=== PATIENT | male | born 1955 ===

== ENCOUNTER 2018-11-17 11:43 | Inpatient (IN) | payer OTHER ==
[2018-11-17 12:12] LABS: ADD MAN DIFF? NO
[2018-11-17] MEDS: ASPIRIN 325 MG TAB PO (12:17)
[2018-11-17 12:23] LABS: WHITE BLOOD COUNT 9.4 10^3/ul (4.8-10.8)
[2018-11-17 12:23] LABS: BASOPHIL # 0.1 10^3/ul (0.0-0.1); BASOPHILS % 0.5 % (0.0-2.0); EOSINOPHILS # 0.3 10^3/ul (0.0-0.5); EOSINOPHILS % 3.6 % (0.0-7.0); HEMATOCRIT 42.9 % (42.0-52.0); HEMOGLOBIN 14.3 g/dl (14.0-18.0); LYMPHOCYTES # 2.9 10^3/ul (0.8-2.9); LYMPHOCYTES % 30.9 % (15.0-51.0); MEAN CORPUSCULAR HEMOGLOBIN 29.5 pg (29.0-33.0); MEAN CORPUSCULAR HGB CONC 33.3 g/dl (32.0-37.0); MEAN CORPUSCULAR VOLUME 88.5 fl (82.0-101.0); MEAN PLATELET VOLUME 9.8 fl (7.4-10.4); MONOCYTE # 0.5 10^3/ul (0.3-0.9); MONOCYTES % 5.5 % (0.0-11.0); NEUTROPHIL # 5.5 10^3/ul (1.6-7.5); NEUTROPHILS % 59.1 % (39.0-77.0); PLATELET COUNT 303 10^3/UL (140-415); RED BLOOD COUNT 4.85 10^6/ul (4.70-6.10); RED CELL DISTRIBUTION WIDTH 12.7 % (11.5-14.5)
[2018-11-17] MEDS: LIDOCAINE 1% (MPF) 5 ML VIAL (12:37)
[2018-11-17 12:39] LABS: INR 0.93; PROTIME 12.6 Sec (11.9-14.9)
[2018-11-17 12:47] LABS: ALANINE AMINOTRANSFERASE 26 IU/L (13-69); ALBUMIN 4.4 g/dl (3.3-4.9); ALBUMIN/GLOBULIN RATIO 1.15; ALKALINE PHOSPHATASE 99 IU/L (42-121); ANION GAP 11 (5-13); ASPARTATE AMINO TRANSFERASE 35 IU/L (15-46); BILIRUBIN,INDIRECT 0.6 mg/dl (0-1.1); BILIRUBIN,TOTAL 0.6 mg/dl (0.2-1.3); BLOOD UREA NITROGEN 14 mg/dl (7-20); CALCIUM 9.5 mg/dl (8.4-10.2); CARBON DIOXIDE 27 mmol/L (21-31); CHLORIDE 104 mmol/L (97-110); CREATINE KINASE 73 IU/L (23-200); CREATININE 0.54 mg/dl (0.61-1.24); Estimated GFR > 60 mL/min (>60); GLUCOSE 124 mg/dl (70-220); POTASSIUM 3.9 mmol/L (3.5-5.1); SODIUM 142 mmol/L (135-144); TOTAL PROTEIN 8.2 g/dl (6.1-8.1)
[2018-11-17 12:58] LABS: B-TYPE NATRIURETIC PEPTIDE 46 PG/ML (0-125); CK INDEX 0.4; CK-MB 0.27 ng/ml (0.0-2.4); TROPONIN-I < 0.012 ng/ml (0.000-0.120)
[2018-11-17] MEDS ORDERED: NITROGLYCERIN (SL) 0.4 MG TAB SL ×2 (14:00→15:00)
[2018-11-17] MEDS: ONDANSETRON 4 MG INJ IV (14:14)
[2018-11-17] MEDS: morphine 2 MG INJ IV ×3 (14:14→18:44)
[2018-11-17] MEDS ORDERED: ONDANSETRON 4 MG INJ IV ×2 (14:30→15:00)
[2018-11-17] MEDS ORDERED: ACETAMINOPHEN 325 MG TAB PO ×2 (14:30→15:00)
[2018-11-17] MEDS ORDERED: GLUCAGON 1 MG INJ IM (15:00)
[2018-11-17] MEDS ORDERED: DEXTROSE 50% 50 ML SYRINGE IV ×2 (15:00)
[2018-11-17] MEDS ORDERED: GLUCOSE GEL 15 GRAM TUBE PO ×2 (15:00)
[2018-11-17] MEDS ORDERED: LORAZEPAM 2 MG INJ IV (15:00)
[2018-11-17] MEDS ORDERED: MAGNESIUM HYDROXIDE 30ML CUP PO (15:00)
[2018-11-17] MEDS ORDERED: GLUCOSE GEL 15 GRAM TUBE BUCCAL (15:00)
[2018-11-17] MEDS ORDERED: NACL 0.9% 3 ML SYG IV (15:00)
[2018-11-17] MEDS ORDERED: hydrALAzine 20 MG INJ IV (15:00)
[2018-11-17] MEDS ORDERED: ALBUTEROL/IPRATROPIUM (NEB) 3 ML AMP HHN (15:00)
[2018-11-17] MEDS ORDERED: DOCUSATE SODIUM 100 MG CAP PO (15:00)
[2018-11-17 16:40] LABS: FREE T4 (FREE THYROXINE) 1.04 ng/dl (0.78-2.44)
[2018-11-17] MEDS: INSULIN ASPART [NOVOLOG] 3 ML PEN SC ×2 (17:00→20:44)
[2018-11-17] MEDS: SOD CHLORIDE 0.45% 1,000 ML IV (18:44)
[2018-11-17 19:19] LABS: CREATINE KINASE 59 IU/L (23-200)
[2018-11-17 19:29] LABS: CK INDEX 0.4; CK-MB < 0.22 ng/ml (0.0-2.4)
[2018-11-17 19:32] LABS: TROPONIN-I < 0.012 ng/ml (0.000-0.120)
[2018-11-17] MEDS: TAMSULOSIN (SR) 0.4 MG CAP PO (20:39)
[2018-11-17] MEDS: HEPARIN 5,000 UNIT/1 ML VIAL SC (20:53)
[2018-11-17] MEDS: HYDROCODONE/APAP (5/325) TAB PO (20:54)
[2018-11-17] MEDS: traZODone 50 MG TAB PO (23:16)
[2018-11-17 23:58] LABS: CREATINE KINASE 56 IU/L (23-200)
[2018-11-18 00:10] LABS: CK INDEX 0.4; CK-MB 0.22 ng/ml (0.0-2.4); TROPONIN-I < 0.012 ng/ml (0.000-0.120)
[2018-11-18] MEDS: INSULIN ASPART [NOVOLOG] 3 ML PEN SC ×6 (00:24→20:59)
[2018-11-18] MEDS: ACCU-CHEK XX (01:37)
[2018-11-18] MEDS: HYDROCODONE/APAP (5/325) TAB PO ×3 (03:52→22:09)
[2018-11-18] MEDS: SOD CHLORIDE 0.45% 1,000 ML IV ×2 (03:55→07:53)
[2018-11-18 06:22] LABS: ADD MAN DIFF? NO
[2018-11-18 06:29] LABS: WHITE BLOOD COUNT 8.3 10^3/ul (4.8-10.8)
[2018-11-18 06:29] LABS: BASOPHIL # 0.1 10^3/ul (0.0-0.1); BASOPHILS % 0.6 % (0.0-2.0); EOSINOPHILS # 0.5 10^3/ul (0.0-0.5); EOSINOPHILS % 5.6 % (0.0-7.0); HEMATOCRIT 37.6 % (42.0-52.0); HEMOGLOBIN 12.7 g/dl (14.0-18.0); LYMPHOCYTES # 2.6 10^3/ul (0.8-2.9); LYMPHOCYTES % 30.9 % (15.0-51.0); MEAN CORPUSCULAR HEMOGLOBIN 29.6 pg (29.0-33.0); MEAN CORPUSCULAR HGB CONC 33.8 g/dl (32.0-37.0); MEAN CORPUSCULAR VOLUME 87.6 fl (82.0-101.0); MEAN PLATELET VOLUME 9.7 fl (7.4-10.4); MONOCYTE # 0.5 10^3/ul (0.3-0.9); MONOCYTES % 6.4 % (0.0-11.0); NEUTROPHIL # 4.7 10^3/ul (1.6-7.5); NEUTROPHILS % 55.9 % (39.0-77.0); PLATELET COUNT 274 10^3/UL (140-415); RED BLOOD COUNT 4.29 10^6/ul (4.70-6.10); RED CELL DISTRIBUTION WIDTH 12.8 % (11.5-14.5)
[2018-11-18 07:02] LABS: HEMOGLOBIN A1C 6.3 % (0-5.9)
[2018-11-18 07:08] LABS: CHOLESTEROL 162 mg/dl (100-200)
[2018-11-18 07:08] LABS: CHOL/HDL RATIO 4.3 RATIO; HDL CHOLESTEROL 37 mg/dl (30-78); LDL CHOLESTEROL,CALCULATED 94 mg/dl; TRIGLYCERIDES 155 mg/dl (0-149)
[2018-11-18 07:18] LABS: ANION GAP 10 (5-13); BLOOD UREA NITROGEN 12 mg/dl (7-20); CALCIUM 8.5 mg/dl (8.4-10.2); CARBON DIOXIDE 26 mmol/L (21-31); CHLORIDE 103 mmol/L (97-110); Estimated GFR > 60 mL/min (>60); GLUCOSE 101 mg/dl (70-220); MAGNESIUM 1.7 mg/dl (1.7-2.5); PHOSPHORUS 3.7 mg/dl (2.5-4.9); POTASSIUM 3.6 mmol/L (3.5-5.1); SODIUM 139 mmol/L (135-144)
[2018-11-18] MEDS: REGADENOSON 0.4 MG/5 ML SYG (11:45)
[2018-11-18] MEDS: ASPIRIN (EC) 325 MG TAB PO (12:49)
[2018-11-18] MEDS: LISINOPRIL 20 MG TAB PO (12:50)
[2018-11-18] MEDS: morphine 2 MG INJ IV (12:51)
[2018-11-18] MEDS: HEPARIN 5,000 UNIT/1 ML VIAL SC ×2 (13:07→21:05)
[2018-11-18] MEDS: TAMSULOSIN (SR) 0.4 MG CAP PO (20:59)
[2018-11-19] MEDS: ACCU-CHEK XX (02:00)
[2018-11-19] MEDS: HYDROCODONE/APAP (5/325) TAB PO ×2 (04:18→15:50)
[2018-11-19] MEDS: SOD CHLORIDE 0.45% 1,000 ML IV (05:11)
[2018-11-19 05:44] LABS: ADD MAN DIFF? NO
[2018-11-19 05:49] LABS: BASOPHIL # 0.1 10^3/ul (0.0-0.1); BASOPHILS % 0.8 % (0.0-2.0); EOSINOPHILS # 0.5 10^3/ul (0.0-0.5); EOSINOPHILS % 6.5 % (0.0-7.0); HEMATOCRIT 37.1 % (42.0-52.0); HEMOGLOBIN 12.7 g/dl (14.0-18.0); LYMPHOCYTES # 3.2 10^3/ul (0.8-2.9); LYMPHOCYTES % 41.9 % (15.0-51.0); MEAN CORPUSCULAR HEMOGLOBIN 30.1 pg (29.0-33.0); MEAN CORPUSCULAR HGB CONC 34.2 g/dl (32.0-37.0); MEAN CORPUSCULAR VOLUME 87.9 fl (82.0-101.0); MEAN PLATELET VOLUME 9.8 fl (7.4-10.4); MONOCYTE # 0.6 10^3/ul (0.3-0.9); NEUTROPHIL # 3.3 10^3/ul (1.6-7.5); NEUTROPHILS % 42.4 % (39.0-77.0); PLATELET COUNT 292 10^3/UL (140-415); RED BLOOD COUNT 4.22 10^6/ul (4.70-6.10); RED CELL DISTRIBUTION WIDTH 12.9 % (11.5-14.5)
[2018-11-19 05:49] LABS: WHITE BLOOD COUNT 7.7 10^3/ul (4.8-10.8)
[2018-11-19 06:15] LABS: ANION GAP 7 (5-13); BLOOD UREA NITROGEN 13 mg/dl (7-20); CALCIUM 8.6 mg/dl (8.4-10.2); CARBON DIOXIDE 26 mmol/L (21-31); CHLORIDE 107 mmol/L (97-110); CREATININE 0.53 mg/dl (0.61-1.24); Estimated GFR > 60 mL/min (>60); GLUCOSE 128 mg/dl (70-220); SODIUM 140 mmol/L (135-144)
[2018-11-19] MEDS: INSULIN ASPART [NOVOLOG] 3 ML PEN SC ×3 (08:27→17:30)
[2018-11-19] MEDS: LISINOPRIL 20 MG TAB PO (09:41)
[2018-11-19] MEDS: ASPIRIN (EC) 325 MG TAB PO (09:44)
[2018-11-19] MEDS: HEPARIN 5,000 UNIT/1 ML VIAL SC (09:49)
== END 2018-11-19 17:45 | disposition home or self-care (01) | DRG 313 ==
LOC: E/R 11:43 → 6WM 11-18 16:55
DX: R07.9 Chest pain, unspecified (principal); E11.9 Type 2 diabetes mellitus without complications; I10 Essential (primary) hypertension; R07.81 Pleurodynia; E78.5 Hyperlipidemia, unspecified; F17.200 Nicotine dependence, unspecified, uncomplicated; Z79.4 Long term (current) use of insulin; Z79.82 Long term (current) use of aspirin; Z87.442 Personal history of urinary calculi
CPT/HCPCS: 71045; 71250; 78452; 80048; 80053; 80061; 82550; 82553; 82962; 83036; 83735; 83880; 84100; 84439; 84443; 84484; 85025; 85610; 85730; 93005; 93017; 93306; 97162; 99285-25